=== PATIENT | male | born 1980 | race Asian ===

== ENCOUNTER 2022-05-14 12:31 | Emergency (ER) | payer OTHER ==
[2022-05-14 12:47] VITALS: BMI 29.8
[2022-05-14 15:11] LABS: HEMATOCRIT 50.1 % (35.4-49); HEMOGLOBIN 16.8 GM/dL (11.7-16.9); MCH 29.4 pg (25.7-33.7); MCHC 33.5 g/dl (32.0-35.9); MEAN CELL VOLUME 87.6 fl (80-96); MEAN PLT VOLUME 9.2 fl (7.5-11.1); PLATELET COUNT 241 10^3/uL (134-434); RBC 5.72 M/mm3 (4.00-5.60); RDW 13.9 % (11.9-15.9); WHITE BLOOD COUNT 9.4 K/mm3 (4.0-10.0)
[2022-05-14 15:54] LABS: ALBUMIN 4.1 g/dl (3.4-5.0); CALCIUM 9.3 mg/dL (8.5-10.1)
[2022-05-14 15:55] LABS: BLOOD UREA NITROGEN 13.7 mg/dL (7-18); MAGNESIUM 2.5 mg/dL (1.8-2.4)
[2022-05-14 15:58] LABS: CREATININE 0.8 mg/dL (0.55-1.3)
[2022-05-14 15:59] LABS: BILIRUBIN,TOTAL 0.8 mg/dL (0.2-1)
[2022-05-14 16:59] VITALS: BP 142/95; PULSE 65; RESP 17; TEMP 98
== END 2022-05-14 17:01 | disposition home or self-care (01) ==
LOC: JER 12:31
DX: R03.0 Elevated blood-pressure reading, without diagnosis of hypertension (principal)
CPT/HCPCS: 36415; 71046-TC-FY; 80053; 83735; 83880; 84484; 85027; 93005; 93010; 99285-25